=== PATIENT | female | born 1965 | race Caucasian/White ===

== ENCOUNTER 2023-08-19 15:08 | Emergency (ER) | payer OTHER, SELFPAY ==
[2023-08-19 15:16] VITALS: BP 136/87; PULSE 98; RESP 20; TEMP 36.9; O2SAT 97; BMI 25.7
--- NOTE | 2023-08-19 15:22 | XR_ITS ---
[address] [address] Patient Name: TRISH CHEN MRN: [id number] date: 1965 Sex: F Assigned Patient Location: ER Current Patient Location: ED.MAIN Accession/Order Number: [id number] Exam Date: 08/19/2023 15:28 Report Date: 08/19/2023 15:51 At the request of: DANILO VICENTE Procedure: XR knee RT 4V PROCEDURE: XR knee RT 4V COMPARISON: None. HISTORY: right knee pain FINDINGS: BONES:No fracture, acute abnormality, or significant arthropathy. SOFT TISSUES:Negative. No visible soft tissue swelling. EFFUSION:None visible. OTHER: Negative. XR/XR knee RT 4V IMPRESSION: No acute disease. Electronically authenticated by: PRASANTH WHITE Date: 08/19/2023 15:51
--- NOTE | 2023-08-19 15:25 | PC.NURSE ---
swelling to right knee observed
--- NOTE | 2023-08-19 15:52 | ED.LOWEXI1 ---
HPI - Extremity Injury (Lower) General Chief Complaint: Extremity Injury, Lower Stated Complaint: EDEMA Time Seen by Provider: 08/19/23 15:22 Source: patient Mode of arrival: walk-in History of Present Illness HPI Narrative: Patient is a 58-year-old female who presents to the emergency department for right knee pain. She states she felt a pop in her knee a week ago but there was no fall or injury. She has had swelling and pain to the medial and posterior aspect of the right knee. She states she saw an orthopedist many years ago who told her her meniscus was gone . She denies calf pain but states the posterior right knee pain radiates distally. No redness, open wounds or drainage. She has not noticed any redness. She took ibuprofen with improvement prior to arrival. Related Data Previous Rx's Medication Instructions Recorded hydrocodone 5 mg-acetaminophen 325 1 tab PO Q6H PRN pain 2 days #8 08/19/23 mg tablet tabs ketorolac 10 mg tablet 10 mg PO TID PRN pain #10 tabs 08/19/23 methylprednisolone 4 mg tablets in See Rx Instructions .Route 08/19/23 a dose pack (Medrol (Mauricio)) .COMPLEX #21 ea Allergies Allergy/AdvReac Type Severity Reaction Status Date / Time No Known Drug Allergies Allergy Verified 08/19/23 15:21 Review of Systems ROS Constitutional Denies: fever or chills Ears, nose, mouth, and throat Denies: throat pain or nasal congestion Respiratory Denies: shortness of breath or cough Gastrointestinal Denies: nausea or vomiting Musculoskeletal Reports: extremity pain, extremity swelling, joint pain, limited range of motion and joint swelling; Denies: back pain or neck pain Integumentary/Breast Denies: rash Neurological Denies: headache Exam Narrative Exam Narrative: Gen.: Awake, alert, in no distress Head: Normocephalic, atraumatic ENT: Moist mucous membranes Respiratory: No respiratory distress Extremities: Tenderness and edema noted to the medial and posterior aspect of the right knee. No joint effusion noted anteriorly. No redness, open wounds or drainage. No circumferential swelling noted. Calves are soft and nontender bilaterally. Psych: Normal mood and affect Neuro: No focal neuro deficit Skin: Warm, dry, intact Constitutional Vital Signs, click to edit/add: Last Vital Signs Temp 98.5 F 08/19/23 15:16 Pulse 98 H 08/19/23 15:16 Resp 20 08/19/23 15:16 BP 136/87 08/19/23 15:16 Pulse Ox 97 08/19/23 15:16 O2 Del Method Room Air 08/19/23 15:16 Course Vital Signs Vital signs: Vital Signs Temperature 98.5 F 08/19/23 15:16 Pulse Rate 98 H 08/19/23 15:16 Respiratory Rate 20 08/19/23 15:16 Blood Pressure 136/87 08/19/23 15:16 Pulse Oximetry 97 08/19/23 15:16 Oxygen Delivery Method Room Air 08/19/23 15:16 Temperature 98.5 F 08/19/23 15:16 Pulse Rate 98 H 08/19/23 15:16 Respiratory Rate 20 08/19/23 15:16 Blood Pressure 136/87 08/19/23 15:16 Pulse Oximetry 97 08/19/23 15:16 Oxygen Delivery Method Room Air 08/19/23 15:16 MDM - Extremity Injury (Lower) MDM Narrative Medical decision making narrative: X-rays with no acute process, ultrasound of the right lower extremity with no evidence of DVT. Patient placed in an Venu wrap, knee immobilizer and given a short course of analgesics with NSAIDs and steroids for home. She is neurovascularly intact at discharge. Follow-up with orthopedics and return to the ER if symptoms change or worsen Medical Records Attestation: I reviewed the patient's medical records. Imaging Data xr knee: Attestation: I have reviewed the pertinent imaging results. Radiologist's impression: ITS Impressions Knee X-Ray 08/19/23 15:22 IMPRESSION: No acute disease. Electronically authenticated by: PRASANTH WHITE Date: 08/19/2023 15:51 Venous US: Radiologist's impression: ITS Impressions Knee X-Ray 08/19/23 15:22 IMPRESSION: No acute disease. Electronically authenticated by: PRASANTH WHITE Date: 08/19/2023 15:51 Venous Doppler Study 08/19/23 16:01 IMPRESSION: There is no direct or indirect evidence of deep vein thrombosis in the right lower extremity at this time. Electronically authenticated by: MARCELL WILL Date: 08/19/2023 17:03 Discharge Plan Discharge Chief Complaint: Extremity Injury, Lower Clinical Impression: Acute pain of right knee Patient Disposition: Home, Self-Care Time of Disposition Decision: 17:06 Condition: Good Prescriptions / Home Meds: New hydrocodone-acetaminophen 5-325 mg tablet 1 tab PO Q6H PRN (Reason: pain) 2 Days Qty: 8 0RF Rx Instructions: DX: M25.561 ketorolac 10 mg tablet 10 mg PO TID PRN (Reason: pain) Qty: 10 0RF methylprednisolone [Medrol (Mauricio)] 4 mg tablets,dose pack See Rx Instructions .ROUTE .COMPLEX Qty: 21 0RF Rx Instructions: Taper as directed Instructions: Knee Pain (ED) Referrals: Physician,Non-Staff, [Primary Care Provider] - 1 week Christiano Campoverde MD [Physician] - 1 week Stand Alone Forms: Portal Instructions
--- NOTE | 2023-08-19 16:01 | US_ITS ---
The [address] [address] Patient Name: TRISH CHEN MRN: [id number] date: 1965 Sex: F Assigned Patient Location: ER Current Patient Location: ER Accession/Order Number: [id number] Exam Date: 08/19/2023 16:22 Report Date: 08/19/2023 17:03 At the request of: DANILO VICENTE Procedure: US venous doppler LE RT EXAM: US venous doppler LE RT HISTORY: DVT . Right leg swelling for one week with pain. COMPARISON: None. TECHNIQUE: Multiple sonographic images of the deep veins of the right lower extremity were obtained, supplemented with Doppler. FINDINGS: The deep veins of the right lower extremity are fairly well-visualized the groin to the mid calf. No filling defect is identified in the deep veins to indicate a thrombus. There is normal compression augmentation to flow throughout. US/US venous doppler LE RT IMPRESSION: There is no direct or indirect evidence of deep vein thrombosis in the right lower extremity at this time. Electronically authenticated by: MARCELL WILL Date: 08/19/2023 17:03
[2023-08-19] MEDS: PREDNISONE 20 MG TABLET 60 MG PO (16:16)
[2023-08-19] MEDS: KETOROLAC TROMETHAMINE 10 MG TABLET PO (16:17)
[2023-08-19] MEDS: HYDROCODONE/ACET 5-325 MG TABLET 1 TAB PO (17:15)
== END 2023-08-19 17:21 | disposition home or self-care (01) ==
PROVIDERS: Emergency Provider Emergency Medicine Emergency Medical Services
DX: M25.561 Pain in right knee (principal)
CPT/HCPCS: 73564; 93971; 99284